=== PATIENT | female | born 1945 | race Caucasian/White ===

== ENCOUNTER 2021-01-23 22:38 | Emergency (ER) | payer OTHER ==
[2021-01-23 22:49] VITALS: BP 159/69; PULSE 54; RESP 20; TEMP 98
--- NOTE | 2021-01-23 22:58 | ED ---
Recheck HPI - General Chief Complaint: Recheck/Abnormal Lab/Rx Stated Complaint: Covid test Time Seen by Provider: 01/23/21 22:53 Source: patient Mode of arrival: ambulatory Limitations: no limitations - History of Present Illness Initial Comments: 75-year-old female patient presents to the emergency department today requesting testing for COVID-19. Denies having any symptoms today. Requires testing to cross border into [place]. Denies any cough, congestion, shortness of breath, fever, chills, vomiting, or diarrhea. Denies need for any further evaluation. - Related Data Allergies Allergy/AdvReac Type Severity Reaction Status Date / Time codeine Allergy Rapid Verified 01/23/21 22:49 Heart Rate Penicillins Allergy Anaphylaxis Verified 01/23/21 22:49 Review of Systems ROS Statement: Those systems with pertinent positive or pertinent negative responses have been documented in the HPI. ROS Other: All systems not noted in ROS Statement are negative. Past Medical History Past Medical History: Diabetes Mellitus, Rheumatoid Arthritis (RA) History of Any Multi-Drug Resistant Organisms: None Reported Past Surgical History: No Surgical Hx Reported Past Psychological History: No Psychological Hx Reported Smoking Status: Never smoker Past Alcohol Use History: None Reported Past Drug Use History: None Reported General Exam Limitations: no limitations General appearance: alert, in no apparent distress, other (Physical well- developed, well-nourished adult female patient in no acute distress. Vital signs upon presentation are temperature 98.2F, pulse 54, respirations 20, blood pressure 159/69, pulse ox 98% on room air.) Respiratory exam: Present: normal lung sounds bilaterally. Absent: respiratory distress, wheezes, rales, rhonchi, stridor Cardiovascular Exam: Present: normal rhythm, bradycardia, normal heart sounds. Absent: systolic murmur, diastolic murmur, rubs, gallop, clicks Neurological exam: Present: alert, oriented X3, CN II-XII intact Psychiatric exam: Present: normal affect, normal mood Skin exam: Present: warm, dry, intact, normal color. Absent: rash Course Vital Signs 01/23/21 22:46 Temperature 98.0 F Pulse Rate 54 L Respiratory 20 Rate Blood Pressure 159/69 O2 Sat by Pulse 98 Oximetry Medical Decision Making - Medical Decision Making 75 year-old female patient presented for COVID-19 testing. Reports no symptoms. She tested negative. Was provided with result. My attending is Dr. Harper. - Lab Data Lab Results 01/23/21 Range/Units 22:56 Coronavirus (PCR) Not Detected (Not Detectd) Disposition Clinical Impression: Encounter for screening laboratory testing for COVID-19 virus Disposition: HOME SELF-CARE Condition: Good Instructions (If sedation given, give patient instructions): Coronavirus Disease 2019 (COVID-19) Additional Instructions: Covid Negative Is patient prescribed a controlled substance at d/c from ED?: No Referrals: None,Stated [Primary Care Provider] - 1-2 days Time of Disposition: 22:58
== END 2021-01-24 00:15 | disposition home or self-care (01) ==
LOC: EC 22:38
DX: Z20.822 Contact with and (suspected) exposure to COVID-19 (principal); E11.9 Type 2 diabetes mellitus without complications; Z88.5 Allergy status to narcotic agent; Z88.0 Allergy status to penicillin
CPT/HCPCS: 87635; 99283

== ENCOUNTER 2021-04-07 21:35 | Emergency (ER) | payer MEDICARE ==
[2021-04-07 22:43] VITALS: RESP 20
--- NOTE | 2021-04-07 23:25 | ED ---
General Adult HPI - General Chief complaint: Recheck/Abnormal Lab/Rx Stated complaint: COVID test for travel Time Seen by Provider: 04/07/21 22:14 Source: patient, RN notes reviewed Mode of arrival: ambulatory Limitations: no limitations - History of Present Illness Initial comments: 76-year-old female with a past medical history of diabetes mellitus presents to the emergency room for a chief complaint of needing a coronavirus test. Patient states she is traveling to [place] and needs a test for this. She denies symptoms or exposures. Denies complaints today.Patient has no other complaints at this time including shortness of breath, chest pain, abdominal pain, nausea or vomiting, headache, or visual changes. - Related Data Allergies Allergy/AdvReac Type Severity Reaction Status Date / Time codeine Allergy Rapid Verified 01/23/21 22:49 Heart Rate Penicillins Allergy Anaphylaxis Verified 01/23/21 22:49 Review of Systems ROS Statement: Those systems with pertinent positive or pertinent negative responses have been documented in the HPI. ROS Other: All systems not noted in ROS Statement are negative. Past Medical History Past Medical History: Diabetes Mellitus, Rheumatoid Arthritis (RA) History of Any Multi-Drug Resistant Organisms: None Reported Past Surgical History: No Surgical Hx Reported Past Psychological History: No Psychological Hx Reported Smoking Status: Never smoker Past Alcohol Use History: None Reported Past Drug Use History: None Reported General Exam Limitations: no limitations General appearance: alert, in no apparent distress Head exam: Present: atraumatic Eye exam: Present: normal appearance, PERRL, EOMI. Absent: scleral icterus, conjunctival injection ENT exam: Present: normal exam, mucous membranes moist Neck exam: Present: normal inspection, full ROM. Absent: tenderness Respiratory exam: Absent: respiratory distress Neurological exam: Present: alert Course Vital Signs 04/07/21 04/07/21 22:40 23:31 Temperature 98.3 F 98.4 F Pulse Rate 63 62 Respiratory 20 20 Rate Blood Pressure 152/69 146/80 O2 Sat by Pulse 97 98 Oximetry Medical Decision Making - Medical Decision Making Test is negative, patient can be discharged home. - Lab Data Lab Results 04/07/21 Range/Units 22:40 Coronavirus (PCR) Not Detected (Not Detectd) Disposition Clinical Impression: Lab test negative for COVID-19 virus Disposition: HOME SELF-CARE Condition: Good Instructions (If sedation given, give patient instructions): Coronavirus Disease 2019 (COVID-19) Additional Instructions: Please follow i Is patient prescribed a controlled substance at d/c from ED?: No Referrals: Miladis Canas MD [REFERRING] - 1-2 days Time of Disposition: 23:25
[2021-04-07 23:32] VITALS: BP 146/80; PULSE 62; TEMP 98.4
== END 2021-04-07 23:31 | disposition home or self-care (01) ==
LOC: EC 21:35
DX: Z20.822 Contact with and (suspected) exposure to COVID-19 (principal); E11.9 Type 2 diabetes mellitus without complications; Z88.5 Allergy status to narcotic agent; Z88.0 Allergy status to penicillin
CPT/HCPCS: 87635; 99283